=== PATIENT | female | born 1990 | race African-American/Black ===

== ENCOUNTER 2021-04-25 18:10 | Emergency (ER) | payer MEDICAID, SELFPAY ==
[~2021-04-25] VITALS: Ht 162.6 cm; Wt 94.8 kg
[2021-04-25 18:20] VITALS: BP_SYST 178
--- NOTE | 2021-04-25 18:20 | NUR ---
PT TO BED 5 FOR EVALUATION. REPORT TO EMILY POLLACK WHO WILL ASSUME CARE.
--- NOTE | 2021-04-25 18:45 | NUR ---
ER at bedside examining patient.
--- NOTE | 2021-04-25 18:51 | NUR ---
Pt. bib boyfriend with c/o fever, cough, SOB X 2 days
--- NOTE | 2021-04-25 19:09 | NUR ---
report to Briangy
--- NOTE | 2021-04-25 19:09 | NUR ---
ASSUME CARE OF PT FROM JAKI DIAZ
[2021-04-25] MEDS ORDERED: IBUP-1969 PO (19:40)
[2021-04-25] MEDS ORDERED: PSEU120T57 PO (19:40)
[2021-04-25 19:44] VITALS: BP_SYST 139
--- NOTE | 2021-04-25 19:45 | NUR ---
Patient given written and verbal discharge instructions and verbalizes understanding. ER MD discussed with patient the results and treatment provided. Patient in stable condition. ID arm band removed. Rx of IBUPROFEN, PSEUDOPHEDRINE given. Patient educated on pain management and to follow up with PMD. Pain Scale 2/10. Opportunity for questions provided and answered. Medication side effect fact sheet provided.
== END 2021-04-25 19:44 | disposition home or self-care (01) ==
LOC: SED 18:10
DX: J40 Bronchitis, not specified as acute or chronic (principal); I10 Essential (primary) hypertension; Z20.822 Contact with and (suspected) exposure to COVID-19
CPT/HCPCS: 36415; 71045; 99284

== ENCOUNTER 2022-06-27 00:11 | Emergency (ER) | payer MEDICAID ==
[~2022-06-27] VITALS: Ht 162.6 cm; Wt 81.6 kg
[~2022-06-27 00:11] MED LIST: IBUP-1969 PO; PSEU120T57 PO
[2022-06-27 00:21] VITALS: BP_SYST 146
[2022-06-27 01:04] VITALS: BP_SYST 146
== END 2022-06-27 01:04 | disposition left against medical advice (07) ==
LOC: SED 00:11
DX: R10.84 Generalized abdominal pain (principal); R11.10 Vomiting, unspecified; R06.02 Shortness of breath; I10 Essential (primary) hypertension; Z53.21 Procedure and treatment not carried out due to patient leaving prior to being seen by health care provider

== ENCOUNTER 2022-08-02 11:22 | Inpatient (IN) | payer MEDICAID ==
[2022-08-02] VITALS (8 sets, daily range): BP systolic 145–215
[~2022-08-02] VITALS: Ht 165.1 cm; Wt 83.9 kg
[2022-08-02 12:12] LABS: BASOPHILS # (AUTO) 0.1 K/uL (0.0-0.2); BASOPHILS % (AUTO) 0.5 % (0.0-2.0); EOSINOPHILS % (AUTO) 0.4 % (0.0-4.0); HEMATOCRIT 39.3 % (36-48); HEMOGLOBIN 13.6 g/dL (12.0-16.0); LYMPHOCYTES # (AUTO) 1.7 K/uL (1.0-5.5); LYMPHOCYTES % (AUTO) 14.9 % (20.5-51.5); MEAN CORPUSCULAR HEMOGLOBIN 31 pg (27-31); MEAN CORPUSCULAR HGB CONC 35 % (32-36); MEAN CORPUSCULAR VOLUME 90 fL (79.0-98.0); MONOCYTES # (AUTO) 0.5 K/uL (0.0-1.0); MONOCYTES % (AUTO) 4.6 % (1.7-9.3); NEUTROPHILS # (AUTO) 9.2 K/uL (1.8-7.7); NEUTROPHILS % (AUTO) 79.6 % (40.0-70.0); PLATELET COUNT (AUTO) 440 K/uL (130-430); RED BLOOD CELL COUNT(AUTO) 4.38 MIL/uL (4.2-6.2); RED CELL DISTRIBUTION WIDTH 20.6 % (9.0-15.0); WHITE BLOOD COUNT (AUTO) 11.5 K/uL (4.8-10.8)
[2022-08-02] MEDS ORDERED: ONDANSETRON HCL 4 MG/2 ML VIAL IVP ONE (12:15)
[2022-08-02] MEDS ORDERED: NACL 0.9% 1,000 ML IV ONE (12:15)
[2022-08-02 12:26] LABS: CALCIUM 9.6 mg/dL (8.4-11.0); CREATININE 0.86 mg/dL (0.55-1.30)
[2022-08-02] MEDS ORDERED: MORPHINE 4 MG INJ. 4 MG/ML VIAL IVP ONE (12:30)
[2022-08-02 12:33] LABS: ALBUMIN 4.3 g/dL (3.4-4.8); PHOSPHORUS 2.9 mg/dL (2.7-4.5)
[2022-08-02] MEDS ORDERED: POTASSIUM CHLORIDE 20 MEQ TAB.PRT.SR PO ONE (13:45)
[2022-08-02] MEDS: D5NS 1,000 ML IV SCH (14:00)
[2022-08-02 14:21] LABS: CLARITY/URINE CLEAR (CLEAR); COLOR,URINE YELLOW (YELLOW); GLUCOSE,URINE NEGATIVE (NEGATIVE); KETONES,URINE 3+ (NEGATIVE); LEUKOCYTE ESTERASE ,URINE NEGATIVE (NEGATIVE); NITRITE, URINE NEGATIVE (NEGATIVE); PROTEIN URINE TRACE (NEGATIVE); UROBILINOGEN,URINE 0.2 (0.2-1.0)
[2022-08-02] MEDS ORDERED: LABE100T8 PO (14:24)
[2022-08-02 14:31] LABS: BILIRUBIN,URINE 1+ (NEGATIVE); BLOOD, URINE TRACE (NEGATIVE)
[2022-08-02 14:33] LABS: BACTERIA,URINE FEW /HPF (None Seen); MUCUS,URINE None Seen /LPF (None Seen); RBC,URINE NONE SEEN /HPF (0-3); WBC,URINE 0-3 /HPF (0-3)
[2022-08-02] MEDS ORDERED: ONDANSETRON HCL 4 MG/2 ML VIAL IVP PRN ×2 (16:00→17:15)
[2022-08-02] MEDS ORDERED: LABETALOL 100 MG/ 20ML VIAL ONE (16:10)
[2022-08-02] MEDS: LABETALOL HCL 20 MG/4 ML CARTRIDGE IVP PRN (16:15)
[2022-08-02] MEDS ORDERED: MORPHINE 4 MG INJ. 4 MG/ML VIAL ONE (16:23)
[2022-08-02] MEDS ORDERED: ONDANSETRON HCL 4 MG/2 ML VIAL ONE (16:23)
[2022-08-02] MEDS: MORPHINE 4 MG INJ. 4 MG/ML VIAL IVP PRN ×2 (16:25→20:40)
[2022-08-02] MEDS ORDERED: PSEUDOEPHEDRINE HCL 120 MG PO PRN (17:15)
[2022-08-02] MEDS ORDERED: IBUPROFEN 600 MG TABLET PO PRN (17:15)
[2022-08-02] MEDS ORDERED: MORPHINE 4 MG INJ. 4 MG/ML VIAL IVP PRN (17:15)
[2022-08-02] MEDS ORDERED: NALOXONE HCL 0.4 MG/ML AMP (NARCAN) IVP PRN (17:15)
[2022-08-02] MEDS: LORazepam 2 MG/ML VIAL IVP PRN (20:01)
[2022-08-03] VITALS (24 sets, daily range): BP systolic 122–194
[2022-08-03] MEDS: LABETALOL HCL 20 MG/4 ML CARTRIDGE IVP PRN ×2 (04:13→11:22)
[2022-08-03] MEDS: LORazepam 2 MG/ML VIAL IVP PRN ×4 (04:14→20:47)
[2022-08-03] MEDS: D5NS 1,000 ML IV SCH (04:15)
[2022-08-03 05:28] LABS: HEMOGLOBIN 13.5 g/dL (12.0-16.0); WHITE BLOOD COUNT (AUTO) 10.8 K/uL (4.8-10.8)
[2022-08-03 05:32] LABS: BASOPHILS % (AUTO) 0.1 % (0.0-2.0); EOSINOPHILS % (AUTO) 0.1 % (0.0-4.0); HEMATOCRIT 38.8 % (36-48); LYMPHOCYTES # (AUTO) 0.6 K/uL (1.0-5.5); MEAN CORPUSCULAR HEMOGLOBIN 31 pg (27-31); MEAN CORPUSCULAR HGB CONC 35 % (32-36); MEAN CORPUSCULAR VOLUME 90 fL (79.0-98.0); MONOCYTES # (AUTO) 0.5 K/uL (0.0-1.0); MONOCYTES % (AUTO) 5.1 % (1.7-9.3); NEUTROPHILS # (AUTO) 9.6 K/uL (1.8-7.7); NEUTROPHILS % (AUTO) 88.7 % (40.0-70.0); PLATELET COUNT (AUTO) 320 K/uL (130-430); RED CELL DISTRIBUTION WIDTH 20.4 % (9.0-15.0)
[2022-08-03 07:16] LABS: ALBUMIN 3.3 g/dL (3.4-4.8); CALCIUM 8.6 mg/dL (8.4-11.0); CREATININE 0.86 mg/dL (0.55-1.30); TOTAL BILIRUBIN 1.1 mg/dL (0.0-1.0)
[2022-08-03] MEDS: MORPHINE 4 MG INJ. 4 MG/ML VIAL IVP PRN ×3 (08:05→19:53)
[2022-08-03] MEDS ORDERED: LABETALOL HCL 100 MG TABLET PO SCH (09:00)
[2022-08-03] MEDS: PANTOPRAZOLE SODIUM 40 MG/VIAL (PROTONIX) IVP SCH (10:05)
[2022-08-03] MEDS: LR 1,000 ML IV SCH ×3 (10:05→20:56)
[2022-08-03] MEDS: LABETALOL HCL 100 MG TABLET PO SCH ×2 (12:15→18:15)
[2022-08-03] MEDS ORDERED: LORazepam 2 MG/ML VIAL IM PRN (12:30)
[2022-08-03] MEDS ORDERED: iohexoL 350 mgI/mL, 100 ML INFUS..BTL IV ONE (16:37)
[2022-08-03] MEDS: NITROGLYCERIN 250 ML IV PRN (20:25)
[2022-08-03] MEDS: METOPROLOL TARTRATE 5 MG/5 ML VIAL IVP SCH (22:30)
[2022-08-04] VITALS (23 sets, daily range): BP systolic 89–202
[2022-08-04] MEDS: LORazepam 2 MG/ML VIAL IVP PRN ×6 (00:13→21:06)
[2022-08-04] MEDS: LABETALOL HCL 100 MG TABLET PO SCH ×4 (00:15→17:25)
[2022-08-04] MEDS: MORPHINE 4 MG INJ. 4 MG/ML VIAL IVP PRN ×6 (00:15→21:09)
[2022-08-04] MEDS: LR 1,000 ML IV SCH ×6 (01:33→21:00)
[2022-08-04] MEDS: METOPROLOL TARTRATE 5 MG/5 ML VIAL IVP SCH ×4 (02:41→22:41)
[2022-08-04 06:44] LABS: BASOPHILS % (AUTO) 0.2 % (0.0-2.0); EOSINOPHILS # (AUTO) 0.1 K/uL (0.0-0.4); EOSINOPHILS % (AUTO) 0.9 % (0.0-4.0); HEMATOCRIT 29.8 % (36-48); HEMOGLOBIN 10.2 g/dL (12.0-16.0); LYMPHOCYTES % (AUTO) 8.2 % (20.5-51.5); MEAN CORPUSCULAR HEMOGLOBIN 31 pg (27-31); MEAN CORPUSCULAR HGB CONC 34 % (32-36); MEAN CORPUSCULAR VOLUME 91 fL (79.0-98.0); MONOCYTES # (AUTO) 0.8 K/uL (0.0-1.0); MONOCYTES % (AUTO) 6.6 % (1.7-9.3); NEUTROPHILS # (AUTO) 10.1 K/uL (1.8-7.7); NEUTROPHILS % (AUTO) 84.1 % (40.0-70.0); PLATELET COUNT (AUTO) 237 K/uL (130-430); RED BLOOD CELL COUNT(AUTO) 3.28 MIL/uL (4.2-6.2); RED CELL DISTRIBUTION WIDTH 20.8 % (9.0-15.0)
[2022-08-04 06:55] LABS: ALBUMIN 2.6 g/dL (3.4-4.8); CALCIUM 8.1 mg/dL (8.4-11.0); CREATININE 0.68 mg/dL (0.55-1.30)
[2022-08-04] MEDS: NITROGLYCERIN 250 ML IV PRN (08:32)
[2022-08-04] MEDS: PANTOPRAZOLE SODIUM 40 MG/VIAL (PROTONIX) IVP SCH (08:56)
[2022-08-04] MEDS ORDERED: METOPROLOL TARTRATE 5 MG/5 ML VIAL IVP SCH (11:00)
[2022-08-04] MEDS ORDERED: ENALAPRILAT DIHYDRATE 1.25 MG/ML VIAL IVP ONE (11:15)
[2022-08-04] MEDS ORDERED: PIPERACILLIN/TAZO 4.5GM/DEX-IS 100 ML IV ONE (11:15)
[2022-08-04] MEDS: ENALAPRILAT DIHYDRATE 1.25 MG/ML VIAL IVP SCH ×2 (17:21→23:24)
[2022-08-04] MEDS: PIPERACILLIN/TAZO 4.5GM/DEX-IS 100 ML IV SCH (18:25)
[2022-08-04] MEDS ORDERED: COMMUNICATION ORDER XX ONE (20:00)
[2022-08-05] VITALS (24 sets, daily range): BP systolic 108–190
[2022-08-05] MEDS: LR 1,000 ML IV SCH ×3 (00:26→12:11)
[2022-08-05] MEDS: LABETALOL HCL 100 MG TABLET PO SCH ×4 (00:27→18:15)
[2022-08-05] MEDS: MORPHINE 4 MG INJ. 4 MG/ML VIAL IVP PRN ×2 (01:26→05:20)
[2022-08-05] MEDS: LORazepam 2 MG/ML VIAL IVP PRN ×3 (01:32→21:50)
[2022-08-05] MEDS: PIPERACILLIN/TAZO 4.5GM/DEX-IS 100 ML IV SCH ×3 (03:18→20:07)
[2022-08-05] MEDS: NITROGLYCERIN 250 ML IV PRN (03:31)
[2022-08-05] MEDS: ENALAPRILAT DIHYDRATE 1.25 MG/ML VIAL IVP SCH ×4 (05:17→21:15)
[2022-08-05] MEDS ORDERED: LR 1,000 ML IV SCH (06:00)
[2022-08-05] MEDS: METOPROLOL TARTRATE 5 MG/5 ML VIAL IVP SCH ×3 (06:35→21:44)
[2022-08-05 06:37] LABS: BASOPHILS % (AUTO) 0.4 % (0.0-2.0); EOSINOPHILS # (AUTO) 0.2 K/uL (0.0-0.4); EOSINOPHILS % (AUTO) 2.3 % (0.0-4.0); HEMATOCRIT 26.4 % (36-48); HEMOGLOBIN 9.2 g/dL (12.0-16.0); LYMPHOCYTES % (AUTO) 10.1 % (20.5-51.5); MEAN CORPUSCULAR HEMOGLOBIN 31 pg (27-31); MEAN CORPUSCULAR HGB CONC 35 % (32-36); MEAN CORPUSCULAR VOLUME 90 fL (79.0-98.0); MONOCYTES # (AUTO) 0.6 K/uL (0.0-1.0); MONOCYTES % (AUTO) 5.5 % (1.7-9.3); NEUTROPHILS # (AUTO) 8.4 K/uL (1.8-7.7); NEUTROPHILS % (AUTO) 81.7 % (40.0-70.0); PLATELET COUNT (AUTO) 212 K/uL (130-430); RED BLOOD CELL COUNT(AUTO) 2.93 MIL/uL (4.2-6.2); RED CELL DISTRIBUTION WIDTH 21.2 % (9.0-15.0); WHITE BLOOD COUNT (AUTO) 10.3 K/uL (4.8-10.8)
[2022-08-05 07:56] LABS: ALBUMIN 2.5 g/dL (3.4-4.8); CALCIUM 7.9 mg/dL (8.4-11.0); CREATININE 0.65 mg/dL (0.55-1.30); TOTAL BILIRUBIN 0.9 mg/dL (0.0-1.0)
[2022-08-05] MEDS: PANTOPRAZOLE SODIUM 40 MG/VIAL (PROTONIX) IVP SCH (09:52)
[2022-08-05] MEDS ORDERED: ENOXAPARIN SODIUM 40 MG/0.4 ML SYRINGE SUBCUT ONE (10:00)
[2022-08-05] MEDS ORDERED: amLODIPine BESYLATE 10 MG TABLET PO ONE (10:00)
[2022-08-05] MEDS ORDERED: POTASSIUM CHLORIDE 40 MEQ, LIDOCAINE JECT 2% PF 100 MG 50 MG in NS 250 ML IV ONE (10:15)
[2022-08-05 10:17] LABS: ERYTHROCYTE SEDIMENTATION RATE 32 MM/HR (0-20)
[2022-08-05 11:03] LABS: C-REACTIVE PROTEIN QUANT 17.6 mg/dL (0-0.5)
[2022-08-05] MEDS: MORPHINE 2 MG/ML INJ. SYRINGE IVP PRN ×2 (14:24→21:40)
[2022-08-06] VITALS (24 sets, daily range): BP systolic 119–184
[2022-08-06] MEDS: LABETALOL HCL 100 MG TABLET PO SCH ×5 (00:15→23:46)
[2022-08-06] MEDS: MORPHINE 4 MG INJ. 4 MG/ML VIAL IVP PRN ×2 (01:49→19:50)
[2022-08-06] MEDS: LORazepam 2 MG/ML VIAL IVP PRN ×3 (02:47→20:54)
[2022-08-06] MEDS: PIPERACILLIN/TAZO 4.5GM/DEX-IS 100 ML IV SCH ×2 (03:00→14:36)
[2022-08-06] MEDS: ENALAPRILAT DIHYDRATE 1.25 MG/ML VIAL IVP SCH (05:19)
[2022-08-06] MEDS: LR 1,000 ML IV SCH (06:00)
[2022-08-06 06:51] LABS: BASOPHILS % (AUTO) 0.5 % (0.0-2.0); EOSINOPHILS # (AUTO) 0.3 K/uL (0.0-0.4); EOSINOPHILS % (AUTO) 3.1 % (0.0-4.0); HEMATOCRIT 26.5 % (36-48); HEMOGLOBIN 9.3 g/dL (12.0-16.0); LYMPHOCYTES # (AUTO) 1.3 K/uL (1.0-5.5); LYMPHOCYTES % (AUTO) 14.9 % (20.5-51.5); MEAN CORPUSCULAR HEMOGLOBIN 32 pg (27-31); MEAN CORPUSCULAR HGB CONC 35 % (32-36); MEAN CORPUSCULAR VOLUME 90 fL (79.0-98.0); MONOCYTES # (AUTO) 0.7 K/uL (0.0-1.0); MONOCYTES % (AUTO) 8.2 % (1.7-9.3); NEUTROPHILS # (AUTO) 6.4 K/uL (1.8-7.7); NEUTROPHILS % (AUTO) 73.3 % (40.0-70.0); PLATELET COUNT (AUTO) 229 K/uL (130-430); RED BLOOD CELL COUNT(AUTO) 2.94 MIL/uL (4.2-6.2); RED CELL DISTRIBUTION WIDTH 20.9 % (9.0-15.0); WHITE BLOOD COUNT (AUTO) 8.8 K/uL (4.8-10.8)
[2022-08-06 07:22] LABS: C-REACTIVE PROTEIN QUANT 14.8 mg/dL (0-0.5); CALCIUM 7.8 mg/dL (8.4-11.0); CREATININE 0.64 mg/dL (0.55-1.30)
[2022-08-06] MEDS ORDERED: POTASSIUM CHLORIDE 40 MEQ, LIDOCAINE JECT 2% PF 100 MG 50 MG in NS 250 ML IV ONE (08:00)
[2022-08-06] MEDS ORDERED: KCL 20 mEq in 100 mL (PREMIX) 300 ML IV ONE (08:00)
[2022-08-06] MEDS: PANTOPRAZOLE SODIUM 40 MG/VIAL (PROTONIX) IVP SCH (09:03)
[2022-08-06] MEDS: CARVEDILOL 25 MG TABLET (COREG) PO SCH ×2 (09:04→20:44)
[2022-08-06] MEDS: amLODIPine BESYLATE 10 MG TABLET PO SCH (09:05)
[2022-08-06] MEDS: ENOXAPARIN SODIUM 40 MG/0.4 ML SYRINGE SUBCUT SCH (09:09)
[2022-08-06] MEDS: MORPHINE 2 MG/ML INJ. SYRINGE IVP PRN (09:42)
[2022-08-06 11:52] LABS: ERYTHROCYTE SEDIMENTATION RATE 52 MM/HR (0-20)
[2022-08-06] MEDS ORDERED: lisinopriL 20 MG TABLET PO ONE (12:00)
[2022-08-06] MEDS ORDERED: cloNIDine HCL 0.1 MG TABLET PO PRN (12:45)
[2022-08-06] MEDS ORDERED: cloNIDine HCL 0.1 MG TABLET PO ONE (13:15)
[2022-08-06] MEDS: cefTRIAXone 1 GM in D5W 50 ML IV SCH (18:57)
[2022-08-06] MEDS: METOPROLOL TARTRATE 5 MG/5 ML VIAL IVP SCH (20:58)
[2022-08-07] VITALS (17 sets, daily range): BP systolic 105–181
[2022-08-07] MEDS: LR 1,000 ML IV SCH ×2 (01:08→21:16)
[2022-08-07] MEDS: MORPHINE 4 MG INJ. 4 MG/ML VIAL IVP PRN ×3 (01:28→21:12)
[2022-08-07] MEDS: LABETALOL HCL 100 MG TABLET PO SCH ×3 (05:29→17:30)
[2022-08-07] MEDS: METOPROLOL TARTRATE 5 MG/5 ML VIAL IVP SCH (05:32)
[2022-08-07 07:04] LABS: C-REACTIVE PROTEIN QUANT 10.6 mg/dL (0-0.5); CALCIUM 8.2 mg/dL (8.4-11.0); CREATININE 0.64 mg/dL (0.55-1.30)
[2022-08-07 07:36] LABS: BASOPHILS # (AUTO) 0.1 K/uL (0.0-0.2); BASOPHILS % (AUTO) 0.8 % (0.0-2.0); EOSINOPHILS # (AUTO) 0.3 K/uL (0.0-0.4); EOSINOPHILS % (AUTO) 3.8 % (0.0-4.0); HEMATOCRIT 27.6 % (36-48); HEMOGLOBIN 9.7 g/dL (12.0-16.0); LYMPHOCYTES # (AUTO) 1.3 K/uL (1.0-5.5); LYMPHOCYTES % (AUTO) 15.5 % (20.5-51.5); MEAN CORPUSCULAR HEMOGLOBIN 32 pg (27-31); MEAN CORPUSCULAR HGB CONC 35 % (32-36); MEAN CORPUSCULAR VOLUME 90 fL (79.0-98.0); MONOCYTES % (AUTO) 11.4 % (1.7-9.3); NEUTROPHILS # (AUTO) 5.8 K/uL (1.8-7.7); NEUTROPHILS % (AUTO) 68.5 % (40.0-70.0); PLATELET COUNT (AUTO) 278 K/uL (130-430); RED BLOOD CELL COUNT(AUTO) 3.07 MIL/uL (4.2-6.2); RED CELL DISTRIBUTION WIDTH 21.1 % (9.0-15.0); WHITE BLOOD COUNT (AUTO) 8.4 K/uL (4.8-10.8)
[2022-08-07] MEDS ORDERED: POTASSIUM CHLORIDE 20 MEQ/PKT PACKET PO ONE (08:45)
[2022-08-07] MEDS ORDERED: KCL 20 mEq in 100 mL (PREMIX) 200 ML IV ONE (08:45)
[2022-08-07] MEDS: PANTOPRAZOLE SODIUM 40 MG/VIAL (PROTONIX) IVP SCH (09:39)
[2022-08-07] MEDS: CARVEDILOL 25 MG TABLET (COREG) PO SCH ×2 (09:39→21:06)
[2022-08-07] MEDS: amLODIPine BESYLATE 10 MG TABLET PO SCH (09:41)
[2022-08-07] MEDS: LOSARTAN POTASSIUM 50 MG TABLET (COZAAR) PO SCH (09:42)
[2022-08-07] MEDS: lisinopriL 20 MG TABLET PO SCH (09:44)
[2022-08-07] MEDS: ENOXAPARIN SODIUM 40 MG/0.4 ML SYRINGE SUBCUT SCH (09:45)
[2022-08-07 09:58] LABS: ERYTHROCYTE SEDIMENTATION RATE 46 MM/HR (0-20)
[2022-08-07] MEDS ORDERED: hydrALAZINE HCL 25 MG TABLET PO ONE (12:00)
[2022-08-07] MEDS: POTASSIUM CHLORIDE 20 MEQ TAB.PRT.SR PO SCH ×2 (12:37→16:58)
[2022-08-07] MEDS ORDERED: METOPROLOL SUCCINATE 50 MG TAB.SR.24H (TOPROL XL) PO ONE (14:30)
[2022-08-07] MEDS: LORazepam 2 MG/ML VIAL IVP PRN (14:34)
[2022-08-07] MEDS ORDERED: POTASSIUM CHLORIDE 20 MEQ TAB.PRT.SR PO SCH (15:00)
[2022-08-07] MEDS: cefTRIAXone 1 GM in D5W 50 ML IV SCH (16:59)
[2022-08-07] MEDS: METOPROLOL SUCCINATE 50 MG TAB.SR.24H (TOPROL XL) PO SCH (21:05)
[2022-08-07] MEDS: hydrALAZINE HCL 25 MG TABLET PO SCH (22:00)
[2022-08-08 00:10] VITALS: BP_SYST 161
[2022-08-08] MEDS: LABETALOL HCL 100 MG TABLET PO SCH ×4 (00:31→22:05)
[2022-08-08] MEDS: LORazepam 2 MG/ML VIAL IVP PRN ×3 (00:37→22:02)
[2022-08-08] MEDS: MORPHINE 4 MG INJ. 4 MG/ML VIAL IVP PRN ×3 (03:26→22:02)
[2022-08-08] MEDS: hydrALAZINE HCL 25 MG TABLET PO SCH ×3 (05:52→22:00)
[2022-08-08 06:34] LABS: BASOPHILS % (AUTO) 0.5 % (0.0-2.0); EOSINOPHILS # (AUTO) 0.3 K/uL (0.0-0.4); EOSINOPHILS % (AUTO) 4.9 % (0.0-4.0); HEMATOCRIT 28.8 % (36-48); LYMPHOCYTES # (AUTO) 1.1 K/uL (1.0-5.5); LYMPHOCYTES % (AUTO) 15.3 % (20.5-51.5); MEAN CORPUSCULAR HEMOGLOBIN 31 pg (27-31); MEAN CORPUSCULAR HGB CONC 35 % (32-36); MEAN CORPUSCULAR VOLUME 90 fL (79.0-98.0); MONOCYTES # (AUTO) 0.8 K/uL (0.0-1.0); MONOCYTES % (AUTO) 11.4 % (1.7-9.3); NEUTROPHILS # (AUTO) 4.8 K/uL (1.8-7.7); NEUTROPHILS % (AUTO) 67.9 % (40.0-70.0); PLATELET COUNT (AUTO) 330 K/uL (130-430); RED CELL DISTRIBUTION WIDTH 20.8 % (9.0-15.0)
[2022-08-08 07:17] LABS: ALBUMIN 2.8 g/dL (3.4-4.8); CALCIUM 8.6 mg/dL (8.4-11.0); CREATININE 0.6 mg/dL (0.55-1.30); TOTAL BILIRUBIN 0.4 mg/dL (0.0-1.0)
[2022-08-08 08:00] VITALS: BP_SYST 150
[2022-08-08] MEDS: PANTOPRAZOLE SODIUM 40 MG/VIAL (PROTONIX) IVP SCH (08:23)
[2022-08-08] MEDS: LOSARTAN POTASSIUM 50 MG TABLET (COZAAR) PO SCH (08:24)
[2022-08-08] MEDS: METOPROLOL SUCCINATE 50 MG TAB.SR.24H (TOPROL XL) PO SCH (08:24)
[2022-08-08] MEDS: amLODIPine BESYLATE 10 MG TABLET PO SCH (08:24)
[2022-08-08] MEDS: lisinopriL 20 MG TABLET PO SCH (08:25)
[2022-08-08] MEDS: CARVEDILOL 25 MG TABLET (COREG) PO SCH (08:25)
[2022-08-08] MEDS: ENOXAPARIN SODIUM 40 MG/0.4 ML SYRINGE SUBCUT SCH (08:33)
[2022-08-08] MEDS: MORPHINE 2 MG/ML INJ. SYRINGE IVP PRN (10:49)
[2022-08-08 12:00] VITALS: BP_SYST 150
[2022-08-08] MEDS ORDERED: POTASSIUM CHLORIDE 20 MEQ TAB.PRT.SR PO ONE (13:00)
[2022-08-08 16:00] VITALS: BP_SYST 141
[2022-08-08] MEDS: cefTRIAXone 1 GM in D5W 50 ML IV SCH (18:44)
[2022-08-08] MEDS: LR 1,000 ML IV SCH (18:45)
[2022-08-08] MEDS: POTASSIUM CHLORIDE 20 MEQ TAB.PRT.SR PO SCH (22:03)
[2022-08-09] VITALS: BP_SYST 137
[2022-08-09] MEDS: MORPHINE 4 MG INJ. 4 MG/ML VIAL IVP PRN ×5 (02:12→23:38)
[2022-08-09] MEDS: LORazepam 2 MG/ML VIAL IVP PRN ×3 (02:14→21:35)
[2022-08-09] MEDS: hydrALAZINE HCL 25 MG TABLET PO SCH ×4 (06:55→23:34)
[2022-08-09 07:14] LABS: BASOPHILS # (AUTO) 0.1 K/uL (0.0-0.2); BASOPHILS % (AUTO) 0.8 % (0.0-2.0); EOSINOPHILS # (AUTO) 0.5 K/uL (0.0-0.4); EOSINOPHILS % (AUTO) 5.5 % (0.0-4.0); HEMATOCRIT 27.4 % (36-48); HEMOGLOBIN 9.4 g/dL (12.0-16.0); LYMPHOCYTES # (AUTO) 1.9 K/uL (1.0-5.5); LYMPHOCYTES % (AUTO) 22.9 % (20.5-51.5); MEAN CORPUSCULAR HEMOGLOBIN 31 pg (27-31); MEAN CORPUSCULAR HGB CONC 34 % (32-36); MEAN CORPUSCULAR VOLUME 90 fL (79.0-98.0); MONOCYTES # (AUTO) 1.2 K/uL (0.0-1.0); MONOCYTES % (AUTO) 14.3 % (1.7-9.3); NEUTROPHILS # (AUTO) 4.7 K/uL (1.8-7.7); NEUTROPHILS % (AUTO) 56.5 % (40.0-70.0); PLATELET COUNT (AUTO) 402 K/uL (130-430); RED BLOOD CELL COUNT(AUTO) 3.04 MIL/uL (4.2-6.2); RED CELL DISTRIBUTION WIDTH 21.2 % (9.0-15.0); WHITE BLOOD COUNT (AUTO) 8.3 K/uL (4.8-10.8)
[2022-08-09] MEDS ORDERED: DIATR MEGLU/DIATRIZ SOD 30 ML SOLUTION PO ONE (07:30)
[2022-08-09 08:01] LABS: ALBUMIN 2.6 g/dL (3.4-4.8); C-REACTIVE PROTEIN QUANT 5.7 mg/dL (0-0.5); CALCIUM 8.2 mg/dL (8.4-11.0); CREATININE 0.57 mg/dL (0.55-1.30); TOTAL BILIRUBIN 0.3 mg/dL (0.0-1.0)
[2022-08-09] MEDS: PANTOPRAZOLE SODIUM 40 MG/VIAL (PROTONIX) IVP SCH (09:03)
[2022-08-09] MEDS: ENOXAPARIN SODIUM 40 MG/0.4 ML SYRINGE SUBCUT SCH (09:04)
[2022-08-09] MEDS: lisinopriL 20 MG TABLET PO SCH (09:06)
[2022-08-09] MEDS: LABETALOL HCL 100 MG TABLET PO SCH ×2 (09:08→21:38)
[2022-08-09] MEDS: amLODIPine BESYLATE 10 MG TABLET PO SCH (09:09)
[2022-08-09] MEDS: POTASSIUM CHLORIDE 20 MEQ TAB.PRT.SR PO SCH ×3 (09:11→21:39)
[2022-08-09 09:53] LABS: ERYTHROCYTE SEDIMENTATION RATE 46 MM/HR (0-20)
[2022-08-09] MEDS ORDERED: POTASSIUM CHLORIDE 20 MEQ TAB.PRT.SR PO ONE (10:15)
[2022-08-09] MEDS ORDERED: SPIRONOLACTONE 25 MG TABLET (ALDACTONE) PO ONE (10:45)
[2022-08-09] MEDS: D5NS 1,000 ML IV SCH (11:49)
[2022-08-09 11:59] LABS: THYROID STIMULATING HORMONE 1.47 uIu/mL (0.36-3.74)
[2022-08-09 12:00] VITALS: BP_SYST 142
[2022-08-09 16:00] VITALS: BP_SYST 140
[2022-08-09] MEDS: cefTRIAXone 1 GM in D5W 50 ML IV SCH (17:45)
[2022-08-10] MEDS: hydrALAZINE HCL 25 MG TABLET PO SCH ×3 (05:11→18:37)
[2022-08-10] MEDS: LORazepam 2 MG/ML VIAL IVP PRN (05:14)
[2022-08-10] MEDS: MORPHINE 4 MG INJ. 4 MG/ML VIAL IVP PRN ×2 (05:15→11:55)
[2022-08-10 07:14] LABS: CALCIUM 8.2 mg/dL (8.4-11.0); CREATININE 0.57 mg/dL (0.55-1.30)
[2022-08-10 08:08] LABS: BASOPHILS # (AUTO) 0.1 K/uL (0.0-0.2); BASOPHILS % (AUTO) 0.8 % (0.0-2.0); EOSINOPHILS # (AUTO) 0.5 K/uL (0.0-0.4); EOSINOPHILS % (AUTO) 5.7 % (0.0-4.0); HEMATOCRIT 29.6 % (36-48); HEMOGLOBIN 10.1 g/dL (12.0-16.0); LYMPHOCYTES # (AUTO) 1.6 K/uL (1.0-5.5); LYMPHOCYTES % (AUTO) 20.4 % (20.5-51.5); MEAN CORPUSCULAR HEMOGLOBIN 31 pg (27-31); MEAN CORPUSCULAR HGB CONC 34 % (32-36); MEAN CORPUSCULAR VOLUME 90 fL (79.0-98.0); MONOCYTES # (AUTO) 1.1 K/uL (0.0-1.0); MONOCYTES % (AUTO) 13.5 % (1.7-9.3); NEUTROPHILS # (AUTO) 4.7 K/uL (1.8-7.7); NEUTROPHILS % (AUTO) 59.6 % (40.0-70.0); PLATELET COUNT (AUTO) 531 K/uL (130-430); RED BLOOD CELL COUNT(AUTO) 3.29 MIL/uL (4.2-6.2); RED CELL DISTRIBUTION WIDTH 21.2 % (9.0-15.0)
[2022-08-10] MEDS: D5NS 1,000 ML IV SCH (11:44)
[2022-08-10] MEDS: POTASSIUM CHLORIDE 20 MEQ TAB.PRT.SR PO SCH ×3 (11:51→21:18)
[2022-08-10] MEDS: PANTOPRAZOLE SODIUM 40 MG/VIAL (PROTONIX) IVP SCH (11:51)
[2022-08-10] MEDS: amLODIPine BESYLATE 10 MG TABLET PO SCH (11:52)
[2022-08-10] MEDS: lisinopriL 20 MG TABLET PO SCH (11:54)
[2022-08-10] MEDS: ENOXAPARIN SODIUM 40 MG/0.4 ML SYRINGE SUBCUT SCH (11:55)
[2022-08-10] MEDS: LABETALOL HCL 100 MG TABLET PO SCH ×2 (11:55→21:18)
[2022-08-10] MEDS ORDERED: NALOXONE HCL 0.4 MG/ML AMP (NARCAN) IVP PRN ×2 (12:30)
[2022-08-10] MEDS ORDERED: HYDROcodone/ACETAMIN 5-325 MG TAB (NORCO/ VICODIN) PO PRN (12:30)
[2022-08-10] MEDS ORDERED: SPIRONOLACTONE 25 MG TABLET (ALDACTONE) PO ONE (12:30)
[2022-08-10 14:14] VITALS: BP_SYST 144
[2022-08-10] MEDS: chlordiazePOXIDE HCL 10 MG CAPSULE PO PRN (15:54)
[2022-08-10] MEDS: cefTRIAXone 1 GM in D5W 50 ML IV SCH (15:55)
[2022-08-10] MEDS: HYDROcodone/ACETAMIN 10-325 MG TAB PO PRN ×2 (17:04→21:18)
[2022-08-10 18:38] VITALS: BP_SYST 142
[2022-08-10 20:07] VITALS: BP_SYST 131
[2022-08-11] VITALS: BP_SYST 128
[2022-08-11] MEDS: hydrALAZINE HCL 25 MG TABLET PO SCH ×3 (00:21→11:18)
[2022-08-11] MEDS: D5NS 1,000 ML IV SCH (03:15)
[2022-08-11] MEDS: chlordiazePOXIDE HCL 10 MG CAPSULE PO PRN (05:58)
[2022-08-11 08:16] VITALS: BP_SYST 174
[2022-08-11] MEDS: lisinopriL 20 MG TABLET PO SCH (08:19)
[2022-08-11] MEDS: POTASSIUM CHLORIDE 20 MEQ TAB.PRT.SR PO SCH (08:19)
[2022-08-11] MEDS: amLODIPine BESYLATE 10 MG TABLET PO SCH (08:20)
[2022-08-11] MEDS: HYDROcodone/ACETAMIN 10-325 MG TAB PO PRN (08:20)
[2022-08-11] MEDS: LABETALOL HCL 100 MG TABLET PO SCH (08:20)
[2022-08-11] MEDS: ENOXAPARIN SODIUM 40 MG/0.4 ML SYRINGE SUBCUT SCH (08:21)
[2022-08-11] MEDS: PANTOPRAZOLE SODIUM 40 MG/VIAL (PROTONIX) IVP SCH (08:21)
[2022-08-11 08:22] LABS: CREATININE 0.66 mg/dL (0.55-1.30)
[2022-08-11 11:40] LABS: BASOPHILS # (AUTO) 0.1 K/uL (0.0-0.2); EOSINOPHILS # (AUTO) 0.5 K/uL (0.0-0.4); EOSINOPHILS % (AUTO) 7.4 % (0.0-4.0); HEMATOCRIT 28.8 % (36-48); HEMOGLOBIN 9.9 g/dL (12.0-16.0); LYMPHOCYTES # (AUTO) 1.8 K/uL (1.0-5.5); LYMPHOCYTES % (AUTO) 27.5 % (20.5-51.5); MEAN CORPUSCULAR HEMOGLOBIN 31 pg (27-31); MEAN CORPUSCULAR HGB CONC 34 % (32-36); MEAN CORPUSCULAR VOLUME 91 fL (79.0-98.0); MONOCYTES # (AUTO) 0.9 K/uL (0.0-1.0); MONOCYTES % (AUTO) 13.6 % (1.7-9.3); NEUTROPHILS # (AUTO) 3.4 K/uL (1.8-7.7); NEUTROPHILS % (AUTO) 50.5 % (40.0-70.0); PLATELET COUNT (AUTO) 561 K/uL (130-430); RED BLOOD CELL COUNT(AUTO) 3.17 MIL/uL (4.2-6.2); RED CELL DISTRIBUTION WIDTH 20.8 % (9.0-15.0); WHITE BLOOD COUNT (AUTO) 6.7 K/uL (4.8-10.8)
[2022-08-11] MEDS ORDERED: IBUP-1969 PO (12:08)
[2022-08-11] MEDS ORDERED: CHLO10CA6 PO (12:08)
[2022-08-11] MEDS ORDERED: LISI20TA30 PO (12:08)
[2022-08-11] MEDS ORDERED: LABE100T8 PO (12:08)
[2022-08-11] MEDS ORDERED: POTA-197 PO (12:08)
[2022-08-11] MEDS ORDERED: HYDR-4038 PO (12:08)
[2022-08-11] MEDS ORDERED: PRO40 PO (12:08)
[2022-08-11] MEDS ORDERED: NOR10 PO (12:08)
[2022-08-11] MEDS ORDERED: HYDR-3927 PO (12:08)
[2022-08-11] MEDS ORDERED: LEVO-62 PO (12:13)
[2022-08-11 13:02] VITALS: BP_SYST 140
[2022-08-11 13:03] VITALS: BP_SYST 140
== END 2022-08-11 13:35 | disposition home or self-care (01) | DRG 282 ==
LOC: SED 11:22 → UNDOADMIN 13:58 → SMU 13:58 → STU 15:31 → SIC 17:10 → SMU 08-07 13:20
PROVIDERS: ADMIT Preventive Medicine Preventive Medicine/Occupational Environmental Medicine; ATTEND Preventive Medicine Preventive Medicine/Occupational Environmental Medicine
DX: K85.20 Alcohol induced acute pancreatitis without necrosis or infection (principal); J96.01 Acute respiratory failure with hypoxia; E43 Unspecified severe protein-calorie malnutrition; I42.7 Cardiomyopathy due to drug and external agent; R18.8 Other ascites; E88.09 Other disorders of plasma-protein metabolism, not elsewhere classified; E83.51 Hypocalcemia; K83.8 Other specified diseases of biliary tract; R65.10 Systemic inflammatory response syndrome (SIRS) of non-infectious origin without acute organ dysfunction; E87.1 Hypo-osmolality and hyponatremia; T51.91XA Toxic effect of unspecified alcohol, accidental (unintentional), initial encounter; F23 Brief psychotic disorder; E83.52 Hypercalcemia; D64.9 Anemia, unspecified; I10 Essential (primary) hypertension; R74.01 Elevation of levels of liver transaminase levels; D75.839 Thrombocytosis, unspecified; E87.6 Hypokalemia; Z20.822 Contact with and (suspected) exposure to COVID-19; R73.9 Hyperglycemia, unspecified; I16.0 Hypertensive urgency; F10.10 Alcohol abuse, uncomplicated; Y90.9 Presence of alcohol in blood, level not specified; Y92.89 Other specified places as the place of occurrence of the external cause; Z68.30 Body mass index [BMI] 30.0-30.9, adult
CPT/HCPCS: 36415; 71045; 76376; 76705; 80048; 80051; 80053; 81000; 82150; 82533; 83690; 83735; 84100; 84302; 84443; 84484; 84999; 85025; 85651-TC; 86140; 87040; 87086; 93005; 93306; 96361; 96374; 96375; 96376; 99285; C9113; J0696; J1650; J2060; J2270; J2405; J2543; J3480; J3490; J7030; J7042; J7050; J7060; J7120; Q9964; Q9967

== ENCOUNTER 2022-10-03 21:12 | Inpatient (IN) | payer MEDICAID ==
[~2022-10-03] VITALS: Ht 165.1 cm; Wt 81.6 kg
[~2022-10-03 21:12] MED LIST changes: +CHLO10CA6 PO; +HYDR-3927 PO; +HYDR-4038 PO; +LABE100T8 PO; +LEVO-62 PO; +LISI20TA30 PO; +NOR10 PO; +POTA-197 PO; +PRO40 PO; -PSEU120T57 PO
[2022-10-03 22:19] VITALS: BP_SYST 163
--- NOTE | 2022-10-03 22:19 | NUR ---
ER in triage examining patient.
--- NOTE | 2022-10-03 22:21 | NUR ---
Note kaylaone in EDM - 10/03/22 at 2238 by [email or web address] Patient triaged and placed in waiting room. VS checked and patient appears in no acute distress at this time. Accompanied by family, awaiting available bed, and MD notified of need for MSE.
--- NOTE | 2022-10-03 22:21 | NUR ---
Patient triaged and placed in waiting room. VS checked and patient appears in no acute distress at this time. Accompanied by family, awaiting available bed.
[2022-10-03] MEDS ORDERED: NACL 0.9% 1,000 ML IV ONE (22:30)
[2022-10-03] MEDS ORDERED: MORPHINE 4 MG INJ. 4 MG/ML VIAL IVP ONE (22:30)
[2022-10-03] MEDS ORDERED: ONDANSETRON HCL 4 MG/2 ML VIAL IVP ONE (22:30)
--- NOTE | 2022-10-03 23:00 | NUR ---
# 20 gauge angiocath placed to R AC. Use of asceptic technique. Opsite placed over site. Blood return noted. Blood for lab drawn from site. Flushed with 10 cc of normal saline. No evidence of infiltration noted. Patient tolerated well.
[2022-10-03 23:27] LABS: BASOPHILS % (AUTO) 0.4 % (0.0-2.0); HEMATOCRIT 37.8 % (36-48); HEMOGLOBIN 12.8 g/dL (12.0-16.0); LYMPHOCYTES # (AUTO) 0.8 K/uL (1.0-5.5); LYMPHOCYTES % (AUTO) 9.2 % (20.5-51.5); MEAN CORPUSCULAR HEMOGLOBIN 27 pg (27-31); MEAN CORPUSCULAR HGB CONC 34 % (32-36); MEAN CORPUSCULAR VOLUME 81 fL (79.0-98.0); MONOCYTES # (AUTO) 0.3 K/uL (0.0-1.0); MONOCYTES % (AUTO) 3.5 % (1.7-9.3); NEUTROPHILS # (AUTO) 7.9 K/uL (1.8-7.7); NEUTROPHILS % (AUTO) 86.9 % (40.0-70.0); PLATELET COUNT (AUTO) 435 K/uL (130-430); RED BLOOD CELL COUNT(AUTO) 4.67 MIL/uL (4.2-6.2); RED CELL DISTRIBUTION WIDTH 17.9 % (9.0-15.0); WHITE BLOOD COUNT (AUTO) 9.1 K/uL (4.8-10.8)
[2022-10-03] MEDS ORDERED: KETOROLAC TROMETHAMINE 15 MG VIAL IVP ONE (23:45)
[2022-10-03 23:55] LABS: CALCIUM 9.3 mg/dL (8.4-11.0); CREATININE 0.71 mg/dL (0.55-1.30)
[2022-10-03 23:59] LABS: ALBUMIN 4.3 g/dL (3.4-4.8); TOTAL BILIRUBIN 0.8 mg/dL (0.0-1.0)
--- NOTE | 2022-10-04 00:50 | NUR ---
PT BIBS FROM HOME W C/O UPPER ABDOMINAL PAIN 07/15. PT WAS NAUSEATED AND VOMITING CLEAR LIQUED. PATIENT STATES SHE HAS A HISTORY OF PANCREATITIS. PT DENIES SOB, CHEST PAIN, A/O X4 WITH STEADY GAIT.
[2022-10-04] MEDS ORDERED: hydrALAZINE HCL 20 MG/ML VIAL IVP ONE (01:30)
[2022-10-04] MEDS ORDERED: HYDROmorphone 1 MG/ML INJ. CARTRIDGE IVP ONE (01:30)
[2022-10-04 01:38] LABS: BILIRUBIN,URINE NEGATIVE (NEGATIVE); BLOOD, URINE 2+ (NEGATIVE); COLOR,URINE YELLOW (YELLOW); GLUCOSE,URINE NEGATIVE (NEGATIVE); KETONES,URINE 2+ (NEGATIVE); LEUKOCYTE ESTERASE ,URINE NEGATIVE (NEGATIVE); NITRITE, URINE NEGATIVE (NEGATIVE); PH,URINE 6.5 (5.0-8.0); PROTEIN URINE 1+ (NEGATIVE); UROBILINOGEN,URINE 0.2 (0.2-1.0)
[2022-10-04 01:40] LABS: CLARITY/URINE HAZY (CLEAR)
[2022-10-04 01:52] LABS: BACTERIA,URINE None Seen /HPF (None Seen); WBC,URINE 0-3 /HPF (0-3)
[2022-10-04 01:53] LABS: MUCUS,URINE 1+ /LPF (None Seen)
--- NOTE | 2022-10-04 03:07 | NUR ---
Patient resting quietly. No acute distress noted. Vital signs within normal range.
[2022-10-04] MEDS ORDERED: ONDANSETRON HCL 4 MG/2 ML VIAL IVP PRN (05:00)
[2022-10-04] MEDS ORDERED: 0.45% NACL 1,000 ML IV SCH (05:00)
[2022-10-04] MEDS ORDERED: LABE100T8 PO (05:02)
[2022-10-04] MEDS ORDERED: HYDR-3917 PO (05:02)
--- NOTE | 2022-10-04 05:03 | NUR ---
Admit bed requested Patient will be admitted to care of Admitted to Telemetry unit. Diagnosis Pancreatitis Inpatient (Yes or No) yes Observation (Yes or No) no Orientation concerns or request close to nursing station (Yes or No) no Covid Status pending On vent or bipap no Isolation requirements no Needs a sitter no From Home (Yes or if No enter name of facility) yes Requires Dialysis (Yes or No) no Med Rec Completed (Yes of No) yes
[2022-10-04] MEDS: MORPHINE 2 MG/ML INJ. SYRINGE IVP PRN ×3 (06:21→14:33)
--- NOTE | 2022-10-04 07:35 | NUR ---
REPORT RECEIVED FROM JOSE RN, PT JEET. VSS
--- NOTE | 2022-10-04 07:54 | NUR ---
CONSULT CALLED FOR DR YUNG AGUILAR IS GUARD DANCE HALL SPOKE WITH [facility] [employer]- PANCREATITIS [phone]
[2022-10-04] MEDS: LR 1,000 ML IV SCH ×2 (09:15→20:24)
--- NOTE | 2022-10-04 17:18 | NUR ---
PAGED DR DENTON FOR ORDERS HE STATED THAT HE WILL CALL BACK IN 5-10 MINUTES
[2022-10-04] MEDS ORDERED: HYDROmorphone 1 MG/ML INJ. CARTRIDGE IVP PRN (17:45)
[2022-10-04] MEDS ORDERED: KETOROLAC TROMETHAMINE 30 MG VIAL IVP PRN (17:45)
[2022-10-04] MEDS ORDERED: NALOXONE HCL 0.4 MG/ML AMP (NARCAN) IVP PRN (17:45)
--- NOTE | 2022-10-04 17:48 | NUR ---
SPOKE TO DR. DENTON TO ADDRESS PATIENT'S PAIN. NEW PAIN MEDICATION ORDER AND PLACED IN CHART
[2022-10-04] MEDS: HYDROmorphone 2 MG/ML VIAL IVP PRN (18:07)
--- NOTE | 2022-10-04 19:32 | NUR ---
REPORT GIVEN TO EMILY FISHER. PT JEET, VSS
--- NOTE | 2022-10-04 21:00 | NUR ---
# 22 gauge angiocath placed to right hand. Use of asceptic technique. Opsite placed over site. Blood return noted. Blood for lab drawn from site. Flushed with 10 cc of normal saline. No evidence of infiltration noted. Patient tolerated well.
--- NOTE | 2022-10-04 21:00 | NUR ---
IV in right ac was kinked, patient unable to receieve any fluids.
--- NOTE | 2022-10-04 22:10 | NUR ---
Patient resting quietly. No acute distress noted. Vital signs within normal range. No pain currently.
[2022-10-04] MEDS ORDERED: ZOLPIDEM TARTRATE 5 MG TABLET PO PRN (22:30)
--- NOTE | 2022-10-04 22:41 | NUR ---
Patient now reports pain to abdominal area. Rates pain 5/10. Quality of pain sharp and burning.
--- NOTE | 2022-10-05 00:36 | NUR ---
Patient reports she still has pain to abdominal area. Rates pain 6/10. states the dilaudid did not help her. Quality of pain sharp and burning.
[2022-10-05] MEDS: LR 1,000 ML IV SCH (01:31)
[2022-10-05] MEDS: HYDROmorphone 2 MG/ML VIAL IVP PRN (01:34)
[2022-10-05 01:52] VITALS: BP_SYST 160
--- NOTE | 2022-10-05 03:10 | NUR ---
Patient resting quietly. No acute distress noted. Vital signs within normal range.
--- NOTE | 2022-10-05 03:55 | NUR ---
Patient walked out of ER requesting to go home stating she was discharged, she has work at 645am and needs to take a shower. Patient was educated that she would be leaving AMA and her doctor has not discharged her. Patient did not wish to proceed with medical care recommended by by Dr. Dietrich. Patient given information related to possible complications, up to and including , which could occur as a result of leaving hospital at this time. Patient verbalizes understanding of risks involved leaving against medical advice. Patient has signed AMA form. Patient stated she has a ride to pick her up. Patients IV was removed. Patient was alert and oriented, speaking in full sentences. Patient was ambulatory with steady gait.
[2022-10-05] MEDS ORDERED: amLODIPine BESYLATE 10 MG TABLET PO SCH (09:00)
[2022-10-05] MEDS ORDERED: LABETALOL HCL 100 MG TABLET PO SCH (09:00)
== END 2022-10-05 03:55 | disposition left against medical advice (07) | DRG 282 ==
LOC: SED 21:12 → STU 10-04 04:50
PROVIDERS: ADMIT Internal Medicine; ATTEND Internal Medicine
DX: K85.20 Alcohol induced acute pancreatitis without necrosis or infection (principal); R65.11 Systemic inflammatory response syndrome (SIRS) of non-infectious origin with acute organ dysfunction; F10.20 Alcohol dependence, uncomplicated; I10 Essential (primary) hypertension; Y90.9 Presence of alcohol in blood, level not specified; Z79.891 Long term (current) use of opiate analgesic; Z79.899 Other long term (current) drug therapy; Z98.891 History of uterine scar from previous surgery
CPT/HCPCS: 36415; 76705; 80053; 81000; 83690; 85025; 96361; 96374; 96375; 99285; G0378; J0360; J1170; J1885; J2270; J2405; J7030; J7120